=== PATIENT | female | born 1980 | race Hispanic/Latino ===

== ENCOUNTER 2025-01-24 08:21 | Emergency (ER) | payer SELFPAY ==
[2025-01-24 09:20] LABS: ALT (SGPT) 15 U/L (Less than 34); AST (SGOT) 18 U/L (11-34); Albumin 4.7 g/dL (3.1-4.5); Alkaline Phosphatase 55 U/L (40-110); Anion Gap 15 mmol/L (10-20); BUN (Urea Nitrogen) 7 mg/dL (7.0-18.7); Bilirubin, Total 0.3 mg/dL (0.3-1.2); Calc. Creatinine Clearance 0 mL/min (70-130); Calcium 9.1 mg/dL (7.8-10.44); Carbon Dioxide 19 mmol/L (22-29); Chloride 106 mmol/L (98-107); Globulin 3.2 g/dL (2.4-3.5); Glucose 110 mg/dL (70-105); Potassium 3.9 mmol/L (3.5-5.1); Sodium 136 mmol/L (136-145)
[2025-01-24 09:25] LABS: #Basophils 0.2 thou/uL (0.0-0.2); #Eosinophils 0.1 thou/uL (0.0-0.7); #Lymphocytes 1.2 thou/uL (1.20-3.40); #Monocytes 0.5 thou/uL (0.11-0.59); #Neutrophils 4.9 thou/uL (1.40-6.50); %Basophils 2.7 % (0.0-1.0); %Eosinophils 2.0 % (0.0-10.0); %Lymphocytes 17.7 % (21.0-51.0); %Monocytes 7.0 % (0.0-10.0); %Neutrophils 70.7 % (42.0-75.0); Hematocrit 23.1 % (36.0-47.0); Hemoglobin 6.0 g/dL (12.0-16.0); Mean Corpuscular Hemoglobin 14.2 pg (27.0-31.0); Mean Corpuscular Volume 54.9 fl (78.0-98.0); Platelet Count 318 10x3/uL (130-400); Red Blood Cell (RBC) Count 4.20 mill/uL (4.20-5.40); White Blood Cell (WBC) Count 7.0 10x3/uL (4.8-10.8)
[2025-01-24 09:55] LABS: Nucleated RBC (Manual Ct) 2 % (0)
[2025-01-24 09:56] LABS: Anisocytosis SLIGHT = 6-15 cells (100X) (0-5/hpf); Microcytosis MARKED = >30 cells (100X) (0-5/hpf); Platelet Adequacy Comment Appears Adequate
[2025-01-24 09:58] LABS: INR-International Normal Ratio 1.1; PTT 22.7 sec (22.9-36.1); Prothrombin Time 14.1 sec (12.0-14.7)
[2025-01-24 10:10] LABS: MDiff Complete? YES
[2025-01-24] MEDS ORDERED: diphenhydrAMINE 50 MG/ML VIAL ONE (11:01)
[2025-01-24 13:57] LABS: Hematocrit 24.5 % (36.0-47.0); Hemoglobin 6.9 g/dL (12.0-16.0)
[2025-01-24 17:01] LABS: Hematocrit 29.1 % (36.0-47.0); Hemoglobin 8.4 g/dL (12.0-16.0)
== END 2025-01-24 17:27 | disposition home or self-care (01) ==
LOC: NAV ERS 08:21
DX: D64.9 Anemia, unspecified (principal)
CPT/HCPCS: 36415; 36430; 80053; 85025; 85610; 85730; 86850; 86900; 86901; 96374; J1200; J7030; P9016